=== PATIENT | female | born 1965 | race Caucasian/White ===

== ENCOUNTER → 2021-03-05 | Outpatient (CLI) | payer OTHER ==
[~2021-03-05] MED LIST: BACTROBAN OINT22 GM EXT; LOTRIMIN CREAM45 GM EXT
== END ==
LOC: LAB 02:58
DX: Z53.9 Procedure and treatment not carried out, unspecified reason (principal)
CPT/HCPCS: 36415

== ENCOUNTER 2021-11-09 02:10 | Emergency (ER) | payer MEDICARE, OTHER ==
[2021-11-09 02:39] LABS: HEMOGLOBIN 15.6 gm/dl (12.3-15.3); RED BLOOD COUNT 5.32 M/UL (4.00-5.10); WHITE BLOOD COUNT 22.8 K/UL (4.5-11.0)
[2021-11-09 03:12] LABS: BUN/CREATININE RATIO 34 (0-10)
[2021-11-09] MEDS ORDERED: AZITHROMYCIN250 MG PO (05:56)
[2021-11-09] MEDS ORDERED: OMNICEF 300 MG300 MG PO (05:56)
== END 2021-11-09 06:30 | disposition home or self-care (01) ==
LOC: ER1 02:10
PROVIDERS: Physician Assistant Medical
DX: J18.9 Pneumonia, unspecified organism (principal); Z20.822 Contact with and (suspected) exposure to COVID-19; I25.10 Atherosclerotic heart disease of native coronary artery without angina pectoris; E11.9 Type 2 diabetes mellitus without complications; E78.5 Hyperlipidemia, unspecified; I11.9 Hypertensive heart disease without heart failure; F17.210 Nicotine dependence, cigarettes, uncomplicated
CPT/HCPCS: 71045; 80053; 82550; 82553; 83880; 84484; 85025; 93005; 96374; 96375; 99285; J0696; J2270; J2405; U0002

== ENCOUNTER 2022-04-13 10:40 | Emergency (ER) | payer MEDICARE ==
[~2022-04-13 10:40] MED LIST changes: +AZITHROMYCIN250 MG PO; +OMNICEF 300 MG300 MG PO
[2022-04-13 12:23] LABS: HEMOGLOBIN 16.4 gm/dl (12.3-15.3); RED BLOOD COUNT 5.35 M/UL (4.00-5.10); WHITE BLOOD COUNT 17.2 K/UL (4.5-11.0)
[2022-04-13 12:28] LABS: BUN/CREATININE RATIO 13 (0-10)
[2022-04-13] MEDS ORDERED: PYRIDIUM200 MG PO (14:58)
[2022-04-13] MEDS ORDERED: CEFUROXIME500 MG PO (14:58)
[2022-04-13] MEDS ORDERED: TORADOL 10 MG T10 MG PO (14:58)
== END 2022-04-13 16:35 | disposition home or self-care (01) ==
LOC: ER1 10:40
PROVIDERS: Physician Assistant
DX: N39.0 Urinary tract infection, site not specified (principal); E11.9 Type 2 diabetes mellitus without complications; I10 Essential (primary) hypertension; E78.5 Hyperlipidemia, unspecified; Z88.8 Allergy status to other drugs, medicaments and biological substances; F17.200 Nicotine dependence, unspecified, uncomplicated
CPT/HCPCS: 80053; 81001; 83605; 83690; 85025; 87040; 96374; 96375; 99284; J0696; J1885; Q9967